=== PATIENT | female | born 1950 ===

== ENCOUNTER → 2016-11-26 | Outpatient (CLI) | payer MEDICARE ==
--- NOTE | ~2016-11-26 | CT57 ---
[facility] A Service [facility] RADIOLOGY TEXT RESULTS PATIENT: MELVIN HOLGUIN LOCATION: [facility] : 46 UNIT #: [id number] AGE: [address]: Celestina Nation MD SEX: F ORDER DR: [id number] [address] [id number] O MR#: [id number] #: [id number] NAME: MELVIN HOLGUIN : 1950 SEX: F STUDY DATE/TIME: 11/26/2016 9:31 UNIT: [facility] ROOM: STUDY DESCRIPTION: CT Chest Wo Cont Attending Physician: Celestina Nation M.D. Ordering Physician: Celestina Nation M.D. Primary Care Physician: Celestina Nation M.D. MEDICAL IMAGING REPORT This report is preliminary unless electronic signature is present. EXAM CT of the chest without contrast. INDICATIONS Patient previously had a CT scan elsewhere showing emphysema. Patient is a smoker. Follow up. TECHNIQUE CT of the chest was performed without contrast. Coronal and sagittal reformatted images were obtained. This CT exam was performed with one or more of the following radiation dose reduction techniques: automatic exposure control, adjustment of mA and/or kV according to patient size, and iterative reconstruction. COMPARISON STUDIES No comparisons. FINDINGS There is biapical scarring. Minimal emphysematous changes are seen mainly in the lung bases. There are also some minimal emphysematous changes at the lung apices. There is no airspace consolidation or suspicious pulmonary nodule. There is no lymphadenopathy or pleural effusion. Limited imaging in the upper abdomen is unremarkable. The bone windows are unremarkable. IMPRESSION Minimal emphysematous change. No suspicious pulmonary nodule. Dictated by... Jose Villa M.D. [facility] A Service of [facility] RADIOLOGY TEXT RESULTS PATIENT: MELVIN HOLGUIN LOCATION: [facility] : 46 UNIT #: [id number] AGE: [address]: Celestina Nation MD SEX: F ORDER DR: THIS IS AN ELECTRONICALLY VERIFIED REPORT Jose Villa M.D. at 11/29/2016 12:15 PM VINCENZO/gisella TD: 11/26/2016 22:13 JOB #: [id number] MEDICAL IMAGING REPORT Page 1 of 1
== END | disposition home or self-care (01) ==
LOC: SCT 09:20
DX: F17.210 Nicotine dependence, cigarettes, uncomplicated (principal); R93.8 Abnormal findings on diagnostic imaging of other specified body structures
CPT/HCPCS: 71250